=== PATIENT | male | born 1995 | race African-American/Black ===

== ENCOUNTER 2020-03-14 15:13 | Emergency (ER) | payer OTHER ==
[~2020-03-14] VITALS: Ht 188 cm; Wt 74.8 kg
[2020-03-14 15:46] VITALS: BP 126/81
== END 2020-03-14 16:53 | disposition home or self-care (01) ==
LOC: ER 15:13
DX: S90.424A Blister (nonthermal), right lesser toe(s), initial encounter (principal); B35.3 Tinea pedis; X58.XXXA Exposure to other specified factors, initial encounter; Y93.89 Activity, other specified; Y92.89 Other specified places as the place of occurrence of the external cause; Y99.8 Other external cause status